=== PATIENT | female | born 1990 | race Caucasian/White ===

== ENCOUNTER 2018-02-01 07:54 | Day surgery (SDC) | payer OTHER ==
[2018-02-01] MEDS ORDERED: LIDOCAINE 4% SOLUTION 50 ML BTL (09:32)
[2018-02-01] MEDS ORDERED: MIDAZOLAM 1 MG/ML 2 ML INJ (10:02)
[2018-02-01] MEDS ORDERED: FENTAnyl 50 MCG/ML VIAL (10:02)
== END 2018-02-01 11:07 | disposition home or self-care (01) ==
LOC: GIL 07:54
DX: K29.70 Gastritis, unspecified, without bleeding (principal)
CPT/HCPCS: 43239; 84703; 88305